=== PATIENT | male | born 1975 | race Caucasian/White ===

== ENCOUNTER 2017-05-03 18:02 | Emergency (ER) | payer SELFPAY ==
[2017-05-03 18:10] VITALS: O2SAT 98
--- NOTE | 2017-05-03 18:38 | ED PDOC ---
HPI: Psych/Substance Abuse Time Seen by Provider: 05/03/17 18:09 Chief Complaint (Nursing): Dizziness/Lightheaded Chief Complaint (Provider): substance abuse ED Caveat: Intoxicated History Per: Patient, EMS History/Exam Limitations: intoxication Current Symptoms Are (Timing): Still Present Suicide/Self Injury Attempted (Context): None Modifying Factor(s): Other Associated Symptoms: denies: Anger, Anxiety, Agitation, Depression, Paranoia, Suicidal Thoughts, Suicidal Plan Involuntary Hold By: None Additional Complaint(s): 41yo M in ED for substance abuse-was found near his car on the floor resting on his shoes.-states that he smoked PCP. pt without slurred speech, mildly unstable gait. denies alcohol use. says he smoke PCP because of stress. denies HI/SI. pt is calm and cooperative in ER. Past Medical History Reviewed: Historical Data, Nursing Documentation, Vital Signs Vital Signs: Last Vital Signs Temp 97.6 F 05/03/17 18:13 Pulse 81 05/03/17 18:13 Resp 18 05/03/17 18:13 BP 152/94 H 05/03/17 18:13 Pulse Ox 98 05/03/17 18:13 - Medical History PMH: No Chronic Diseases - Family History Family History: States: No Known Family Hx - Allergies Allergies/Adverse Reactions: Allergies Allergy/AdvReac Type Severity Reaction Status Date / Time tomatoes Allergy Mild RASH Uncoded 05/03/17 18:08 Review of Systems ROS Statement: Except As Marked, All Systems Reviewed And Found Negative Constitutional: Negative for: Fever, Chills Psych: Negative for: Depression, Suicidal ideation Physical Exam - Reviewed Nursing Documentation Reviewed: Yes Vital Signs Reviewed: Yes - Physical Exam Appears: Positive for: No Acute Distress. Negative for: Non-toxic (pt under the influence of narcotic substance -normal speech, but slow reaction time) Head Exam: Positive for: ATRAUMATIC, NORMAL INSPECTION, NORMOCEPHALIC Skin: Positive for: Normal Color, Warm, DRY Eye Exam: Positive for: EOMI. Negative for: PERRL (dilated pupils) ENT: Positive for: Normal ENT Inspection Neck: Positive for: Normal, Painless ROM Cardiovascular/Chest: Positive for: Regular Rate, Rhythm Respiratory: Positive for: CNT, Normal Breath Sounds Gastrointestinal/Abdominal: Positive for: Normal Exam, Bowel Sounds, Soft Back: Positive for: Normal Inspection Extremity: Positive for: Normal ROM Neurologic/Psych: Positive for: Alert, Oriented - ECG O2 Sat by Pulse Oximetry: 98 - Progress ED Course And Treament: PT will get finger stick adn Alcohol level. Medical Decision Making Medical Decision Making: pt family members in ER with pt. feels comfortable taking pt home. pt stable and sober enough for safe travels home Disposition - Clinical Impression Clinical Impression: Substance abuse - Patient ED Disposition Is Patient to be Admitted: No Counseled Patient/Family Regarding: Studies Performed, Diagnosis, Need For Followup - Disposition Disposition: Routine/Home Disposition Time: 19:14 Condition: FAIR Instructions: Polysubstance Abuse (ED) Forms: [employer] (Welsh)
[2017-05-03 19:25] VITALS: BP 128/76; PULSE 79; RESP 19; TEMP 97
== END 2017-05-03 19:25 | disposition home or self-care (01) ==
LOC: H.ER 18:02
DX: F19.10 Other psychoactive substance abuse, uncomplicated (principal)
CPT/HCPCS: 82948; 99284; G0480

== ENCOUNTER 2017-09-20 20:43 | Emergency (ER) | payer SELFPAY ==
[2017-09-20 20:49] VITALS: O2SAT 96
[2017-09-20 21:28] LABS: BASO # 0.1 K/uL (0.0-0.2); BASO % 1.1 % (0.0-2.0); EOS # 0.2 K/uL (0.0-0.7); EOS % 2.1 % (0.0-4.0); HEMOGLOBIN 15.4 g/dL (12.0-18.0); LYMPH # 2.9 K/uL (1.0-4.3); LYMPH % 32.8 % (20.0-40.0); MEAN CELL VOLUME 89.3 fl (80.0-94.0); MEAN CORPUSCULAR HEMOGLOBIN 30.4 pg (27.0-31.0); MEAN CORPUSCULAR HGB CONC 34.1 g/dL (33.0-37.0); MEAN PLATELET VOLUME 7.3 fl (7.2-11.7); MONO # 0.6 K/uL (0.0-0.8); MONO % 6.7 % (0.0-10.0); NEUT # 5.1 K/uL (1.8-7.0); NEUT % 57.3 % (50.0-75.0); NRBC % 0.1 % (0.0-0.0); RBC 5.06 Mil/uL (4.40-5.90); RED CELL DISTRIBUTION WIDTH 13.7 % (11.5-14.5); WHITE BLOOD COUNT 8.9 K/uL (4.8-10.8)
[2017-09-20 21:45] LABS: ACETAMINOPHEN < 10.0 ug/ml (10.0-30.0); SALICYLATE < 1.0 mg/dl
[2017-09-20 21:46] LABS: BLOOD UREA NITROGEN 20 mg/dl (9-20); CALCIUM 9.8 mg/dL (8.4-10.2); GFR AFRICAN-AMERICAN > 60; GFR NON-AFRICAN AMERICAN > 60
--- NOTE | 2017-09-20 21:53 | ED PDOC ---
HPI: Psych/Substance Abuse Time Seen by Provider: 09/20/17 20:49 Chief Complaint (Nursing): Substance Abuse Chief Complaint (Provider): Substance Abuse History Per: Patient, EMS History/Exam Limitations: no limitations Onset/Duration Of Symptoms: Unknown Current Symptoms Are (Timing): Still Present Additional Complaint(s): 42 y/o known PCP abuser brought in by EMS after he was found lying in the street. Patient admits to using "a little bit" of PCP today. Per EMS, patient was disoriented at first, but upon arrival to the ER, he appears more oriented and alert. Denies suicidal or homidical ideations. Past Medical History Reviewed: Historical Data, Nursing Documentation, Vital Signs Vital Signs: Last Vital Signs Temp 96.8 F L 09/20/17 20:46 Pulse 105 H 09/20/17 20:46 Resp 16 09/20/17 20:46 BP 160/86 H 09/20/17 20:46 Pulse Ox 96 09/20/17 20:46 - Medical History PMH: No Chronic Diseases - Surgical History Surgical History: No Surg Hx - Family History Family History: States: Unknown Family Hx - Social History Current smoker - smoking cessation education provided: Yes Alcohol: Occasional Drugs: Other (PCP) - Allergies Allergies/Adverse Reactions: Allergies Allergy/AdvReac Type Severity Reaction Status Date / Time tomatoes Allergy Mild RASH Uncoded 05/03/17 18:08 Review of Systems ROS Statement: Except As Marked, All Systems Reviewed And Found Negative Physical Exam - Reviewed Nursing Documentation Reviewed: Yes Vital Signs Reviewed: Yes - Physical Exam Appears: Positive for: Well (cooperative), Non-toxic, No Acute Distress Head Exam: Positive for: ATRAUMATIC, NORMAL INSPECTION, NORMOCEPHALIC Skin: Positive for: Normal Color, Warm, Dry. Negative for: Rash Eye Exam: Positive for: EOMI, Normal appearance, PERRL Neck: Positive for: Normal, Painless ROM, Supple Cardiovascular/Chest: Positive for: Regular Rate, Rhythm. Negative for: Murmur Respiratory: Positive for: Normal Breath Sounds. Negative for: Respiratory Distress Gastrointestinal/Abdominal: Positive for: Normal Exam, Bowel Sounds, Soft. Negative for: Tenderness Back: Positive for: Normal Inspection. Negative for: L CVA Tenderness, R CVA Tenderness, Vertebral Tenderness Extremity: Positive for: Normal ROM. Negative for: Pedal Edema, Deformity Neurologic/Psych: Positive for: Alert, Oriented. Negative for: Motor/Sensory Deficits - Laboratory Results Result Diagrams: 09/20/17 21:21 09/20/17 21:21 - ECG O2 Sat by Pulse Oximetry: 96 (RA) Pulse Ox Interpretation: Normal Medical Decision Making Medical Decision Making: Time: 20:49 Patient with known history of PCP abuse. Patient now alert and oriented with steady gait. Head CT not needed given no head trauma. Patient increasing orientation and alertness. Patient was likely under the influence earlier and is now coming to. Pending blood work, patient is safe for discharge. 2200 Patient with negative bloodwork, alert, oriented, steady on feet. Will d/c home. Well-appearing. Scribe Attestation: Documented by Hipolito Rojas, acting as a scribe for Reji Mejia MD. Provider Scribe Attestation: All medical record entries made by the Scribe were at my direction and personally dictated by me. I have reviewed the chart and agree that the record accurately reflects my personal performance of the history, physical exam, medical decision making, and the department course for this patient. I have also personally directed, reviewed, and agree with the discharge instructions and disposition. Disposition - Clinical Impression Clinical Impression: PCP abuse - Disposition Referrals: [facility] [Outside] Disposition Time: 22:00 Condition: STABLE Instructions: Drug Abuse and Drug Addiction (DC) Forms: [employer] (Kyrgyz)
[2017-09-20 22:01] VITALS: BP 159/90; PULSE 86; RESP 18; TEMP 98.2
== END 2017-09-21 00:09 | disposition home or self-care (01) ==
LOC: H.ER 20:43
DX: F16.10 Hallucinogen abuse, uncomplicated (principal); F17.200 Nicotine dependence, unspecified, uncomplicated
CPT/HCPCS: 80048; 85025; 99283; G0480